=== PATIENT | male | born 1955 | race African-American/Black ===

== ENCOUNTER 2021-11-18 10:29 | Day surgery (SDC) | payer MEDICARE, MEDICAID ==
[~2021-11-18] VITALS: Ht 172.7 cm; Wt 89.6 kg
[2021-11-18] VITALS (19 sets, daily range): BP systolic 139–170; BP diastolic 64–96
[2021-11-18] MEDS ORDERED: normal saline 1000ml 1,000 ML IV SCH (11:15)
[2021-11-18 12:16] LABS: BASOPHILS # (AUTO) 0.1 X10'3 (0-0.2); BASOPHILS % (AUTO) 1.5 % (0-1); EOSINOPHILS # (AUTO) 0.2 X10'3 (0-0.9); EOSINOPHILS % (AUTO) 2.9 % (0-6); HEMATOCRIT 37.3 % (42.0-52.0); LYMPHOCYTES # (AUTO) 2.2 X10'3 (1.1-4.8); LYMPHOCYTES % (AUTO) 28.2 % (21-51); MEAN CORPUSCULAR HEMOGLOBIN 29.8 PG (27.0-31.0); MEAN CORPUSCULAR HGB CONC 34.9 g/dL (33.0-36.5); MEAN CORPUSCULAR VOLUME 85.3 FL (78-98); MEAN PLATELET VOLUME 8.1 FL (7.4-10.4); MONOCYTES # (AUTO) 0.5 X10'3 (0-0.9); MONOCYTES % (AUTO) 6.3 % (2-12); NEUTROPHILS # (AUTO) 4.7 X10'3 (1.8-7.7); NEUTROPHILS % (AUTO) 61.1 % (42-75); PLATELET COUNT 363 X10'3 (140-440); RED BLOOD COUNT 4.37 X10'6 (4.70-6.10); RED CELL DISTRIBUTION WIDTH 13.9 % (11.5-14.5); WHITE BLOOD COUNT 7.7 X10'3 (4.5-11.0)
[2021-11-18] MEDS ORDERED: LIDOcaine 1%/PF 5ML 10 MG/ML VIAL ONE ×2 (12:23)
[2021-11-18] MEDS ORDERED: INSU100V9 SQ (12:31)
[2021-11-18] MEDS ORDERED: MULT-1180 PO (12:31)
[2021-11-18] MEDS ORDERED: CARV-50 PO (12:31)
[2021-11-18] MEDS ORDERED: CHOL400T57 PO (12:31)
[2021-11-18] MEDS ORDERED: LISI40TA13 PO (12:31)
[2021-11-18] MEDS ORDERED: SIMV-42 PO (12:31)
[2021-11-18] MEDS ORDERED: INSU100C4 SQ (12:31)
[2021-11-18] MEDS ORDERED: ALLO100T PO (12:31)
[2021-11-18] MEDS ORDERED: NIFE60TA83 PO (12:31)
[2021-11-18] MEDS ORDERED: LATA2.5D14 OP (12:31)
[2021-11-18] MEDS ORDERED: fentaNYL/PF 50MCG/1 ML 2ML syringe ONE (12:34)
[2021-11-18] MEDS ORDERED: midazolam 1 mg/ML 2ml injection ONE (12:34)
== END 2021-11-18 17:30 | disposition home or self-care (01) ==
LOC: SSTAY O 10:29
PROVIDERS: ATTEND Radiology Diagnostic Radiology
DX: E11.22 Type 2 diabetes mellitus with diabetic chronic kidney disease (principal); R80.8 Other proteinuria; I12.0 Hypertensive chronic kidney disease with stage 5 chronic kidney disease or end stage renal disease; N18.4 Chronic kidney disease, stage 4 (severe); Z86.73 Personal history of transient ischemic attack (TIA), and cerebral infarction without residual deficits
CPT/HCPCS: 36415; 50200; 77012; 85025; 99152; 99153; J2250; J3010; J3490; J7030; A4615